=== PATIENT | female | born 1970 | race African-American/Black ===

== ENCOUNTER 2022-05-09 12:36 | Emergency (ER) | payer MEDICAID, OTHER ==
[~2022-05-09] VITALS: Ht 170.2 cm; Wt 127.0 kg
[2022-05-09 12:51] VITALS: BP 170/90
[2022-05-09] MEDS ORDERED: PREDNISONE 20MG TABLET PO NR (15:30)
[2022-05-09] MEDS ORDERED: PREDNISONE 20MG TABLET PO ONE (15:30)
[2022-05-09] MEDS ORDERED: ALBUTEROL (0.083%) 2.5MG/3ML NEB HHN ONE (15:30)
[2022-05-09] MEDS ORDERED: ALBUTEROL (0.083%) 2.5MG/3ML NEB HHN NR (15:30)
[2022-05-09] MEDS ORDERED: ASPIRIN 81MG TABLET PO ONE (22:00)
[2022-05-09 23:12] LABS: BASOPHILS % 0.3 % (0.0-2.0); EOSINOPHILS % 1.6 % (0.0-5.0); HEMATOCRIT. 34.9 % (36.0-48.0); HEMOGLOBIN. 11.3 g/dL (12.0-16.0); LYMPHOCYTES % 45.6 % (20.0-50.0); MEAN CORPUSCULAR VOLUME 86.3 fL (81.0-99.0); MEAN PLATELET VOLUME 7.5 fl (7.4-10.4); MONOCYTES % 7.1 % (2.0-8.0); NEUTROPHILS % 45.4 % (40.0-76.0); PLATELET 217 x1000/uL (130-400); RED BLOOD CELL COUNT 4.04 mill/uL (4.2-5.4); RED CELL DISTRIBUTION WIDTH 14.9 % (11.6-14.6)
[2022-05-09 23:19] LABS: CHLORIDE 106 mEq/L (98-107)
[2022-05-09 23:34] LABS: HCG SCREEN NEGATIVE
== END 2022-05-10 01:30 | disposition home or self-care (01) ==
LOC: ER 12:36
DX: R07.89 Other chest pain (principal); R06.02 Shortness of breath
CPT/HCPCS: 36415; 71045; 80053; 83880; 84484; 84703; 85025; 85379; 93005; 94640; 99285; J7512; Z7610

== ENCOUNTER 2023-09-10 13:21 | Emergency (ER) | payer MEDICAID ==
[~2023-09-10] VITALS: Ht 172.7 cm; Wt 108.0 kg
[2023-09-10 13:27] VITALS: O2SAT 100
[2023-09-10] MEDS ORDERED: BENZ200C52 MT (14:23)
[2023-09-10 14:31] VITALS: BP 133/68; PULSE 75; RESP 16; TEMP 97.9
== END 2023-09-10 15:05 | disposition home or self-care (01) ==
LOC: ER 13:21
DX: R05.9 Cough, unspecified (principal)
CPT/HCPCS: 71045; 99283

== ENCOUNTER 2023-12-19 10:34 | Emergency (ER) | payer MEDICAID ==
[~2023-12-19] VITALS: Ht 172.7 cm; Wt 129.7 kg
[~2023-12-19 10:34] MED LIST: BENZ200C52 MT
[2023-12-19 10:39] VITALS: O2SAT 96
[2023-12-19 11:27] LABS: MEAN CORPUSCULAR HGB CONC 32.4 g/dL (31.0-37.0); RED BLOOD CELL COUNT 4.17 mill/uL (4.2-5.4)
[2023-12-19 11:29] LABS: HEMATOCRIT 38.1 % (36.0-48.0); HEMOGLOBIN 12.3 g/dL (12.0-16.0); MEAN CORPUSCULAR HEMOGLOBIN 29.6 pg (28.0-32.0); MEAN CORPUSCULAR VOLUME 91.3 fL (81.0-99.0); PLATELET 212 x1000/uL (130-400); RED CELL DISTRIBUTION WIDTH 13.5 % (11.6-14.6)
[2023-12-19 11:39] LABS: CHLORIDE 108 mEq/L (98-107); POTASSIUM 3.9 mEq/L (3.5-5.1); SODIUM 140 mEq/L (136-145)
[2023-12-19 11:40] LABS: CARBON DIOXIDE 29 mEq/L (21-32)
[2023-12-19 11:45] LABS: CREATININE 0.8 mg/dL (0.6-1.0); GLUCOSE 85 mg/dL (70-105); UREA NITROGEN BLOOD 13 mg/dL (9-23)
[2023-12-19 11:46] LABS: TROPONIN I HIGH SENSITIVITY < 4 ng/L (3.0-34)
[2023-12-19 11:47] LABS: ALANINE AMINOTRANSFERASE 17 IU/L (10-49); ALBUMIN 4.4 g/dL (3.2-4.8); ASPARTATE AMINOTRANSFERASE 25 IU/L (<34); BILIRUBIN DIRECT 0.2 mg/dL (<=3.0)
[2023-12-19 11:48] LABS: BILIRUBIN TOTAL 0.6 mg/dL (0.1-1.0); PROTEIN TOTAL 7.1 g/dL (6.0-8.3)
[2023-12-19] MEDS: KETOROLAC 30MG/ML VIAL IM STA (12:32)
[2023-12-19] MEDS: DICYCLOMINE HCL 10MG/ML 2ML VIAL IM STA (12:33)
[2023-12-19 12:37] VITALS: BP 148/84; PULSE 81; RESP 16; TEMP 36.55848; O2SAT 96
== END 2023-12-19 12:37 ==
LOC: ER 10:34
DX: R10.13 Epigastric pain (principal); I10 Essential (primary) hypertension
CPT/HCPCS: 99284; 80076; 80048; 81025; 83690; 85027; 84484; 36415; 96372; J0500; J1885